=== PATIENT | female | born 1970 | race Caucasian/White ===

== ENCOUNTER 2024-11-24 09:02 | Emergency (ER) | payer OTHER, SELFPAY ==
--- NOTE | ~2024-11-24 | XR_ITS ---
CLINICAL HISTORY: anterior left lower rib pain 5 view, chest and left ribs Comparison: None Findings: No apparent rib fracture, callus or deformity. Nondisplaced rib fractures can be radiographically occult. No consolidation, pleural effusion, edema or pneumothorax. Normal heart size and mediastinal contour. Vessel en face versus granuloma right base. Upper abdomen unremarkable. Impression: No apparent rib fracture or acute cardiopulmonary process. This document has been electronically signed by: Kirby Strickland MD on 11/24/2024 10:18:04
[2024-11-24 09:14] VITALS: BP 141/79; BP 153/94; PULSE 86; PULSE 88; RESP 16; TEMP 37.4; O2SAT 94; O2SAT 96; BMI 34.2
--- NOTE | 2024-11-24 09:20 | ECG_ITS ---
Test Reason : ABD PAIN Blood Pressure : */* mmHG Vent. Rate : 75 BPM Atrial Rate : 75 BPM P-R Int : 118 ms QRS Dur : 74 ms QT Int : 362 ms P-R-T Axes : -43 51 43 degrees QTcB Int : 404 ms Normal sinus rhythm Premature ventricular complexes Abnormal ECG No previous ECGs available Referred By: Jes Campuzano Electronically Signed By: PETRA LAU
--- NOTE | 2024-11-24 09:25 | ED.CHESTPAIN ---
HPI - Chest Pain General Chief Complaint: Chest Pain Stated Complaint: RIB PAIN Time Seen by Provider: 11/24/24 09:07 Source: patient and EMS Mode of arrival: EMS Limitations: no limitations History of Present Illness ED Provider: KRISTIN HPI narrative: 54 yo female with PMH of bronchitis, no recent travel/procedures, no HRT use notes she started to feel sick on Sunday with a cough/URI symptoms. On Sunday she shoveled and snow was heavy she felt pain in L rib area - since then she has pain with deep breaths, moving, touching the left lower rib area. She took motrin which did not help. She notes she did not feel a pop or anything but felt the lower ant rib pain while shoveling. No falls or obvious trauma. MD complaint: other (rib pain) Onset (ago): day(s) (2) Timing of current episode: constant Prior episodes: No Onset: other (while shoveling) Pain location: other (left lower anterior ribs) Pain radiation: none Severity: severe Quality: aching and sharp Relieving factors: nothing Exacerbating factors: inspiration, palpation and movement Context: other (started while shoveling) Treatment prior to arrival: other (NSAID) Related Data Previous Rx's ?Medication ?Instructions ?Recorded albuterol sulfate 90 mcg/actuation 2 puff inhalation QID PRN 11/24/24 aerosol inhaler shortness of breath or wheezing #6.7 grams cyclobenzaprine 10 mg tablet 10 mg PO TID PRN muscle spasm #20 11/24/24 tabs hydrocodone 5 mg-acetaminophen 325 1 tab PO Q6H PRN pain #12 tabs 11/24/24 mg tablet ibuprofen 600 mg tablet 600 mg PO Q6H PRN pain #30 tabs 11/24/24 lidocaine 5 % topical patch 1 patch topical DAILY #30 ea 11/24/24 ondansetron 4 mg disintegrating 4 mg PO Q8H PRN nausea and 11/24/24 tablet vomiting #20 tabs prednisone 20 mg tablet 40 mg (2 x 20 mg) PO DAILY 5 days 11/24/24 #10 tabs Allergies Allergy/AdvReac Type Severity Reaction Status Date / Time No Known Allergies Allergy Verified 11/24/24 09:19 Review of Systems Review of Systems: Constitutional : No Weight loss, No Fever, No Chills ENT/Mouth : No sore throat, pos Rhinorrhea Eyes: No Eye Pain, No Swelling Cardiovascular : pos rib Pain, no SOB, no Dyspnea on Exertion, No Orthopnea, No Edema, No Palpitations Respiratory : pos Cough, No Sputum Gastrointestinal : no Nausea, No Vomiting, No Diarrhea, No abdominal Pain, No Hematochezia, No Melena Genitourinary : No Dysuria, No Urinary Frequency Musculoskeletal : No joint pain, No Myalgias, No Joint Swelling Skin : No Skin Lesions, No rash Neuro : No Weakness, No Numbness, No Dizziness, No Headache All other systems reviewed and are negative [facility] Past Medical History Attestation statement: The following information was validated with the patient. Source: old records reviewed Medical History (Updated 11/24/24 @ 11:36 by Jes Campuzano DO) Bronchitis Social History Social History (Updated 11/24/24 @ 09:29 by Jes Campuzano DO) Patient Tobacco Use Status: Current everyday Tobacco user Smoked in Last 30 Days: Yes Use of substances other than those prescribed or required for medical reasons: No Advance Directives: Yes Advance Directives Information Provided: Yes Advance Directives on File: No Do you have a plan to hurt others: No Plan Patient : No Physical Exam Vital Signs: Vital Signs: Last Vital Signs Temp 99.3 F 11/24/24 09:14 Pulse 88 11/24/24 09:14 Resp 16 11/24/24 09:14 BP 141/79 H 11/24/24 09:14 Pulse Ox 94 11/24/24 09:14 O2 Del Method Room Air 11/24/24 09:14 BMI result Body Mass Index 34.2 Appearance: Alert. Oriented X3. No acute distress. Eyes: Pupils equal, round and reactive to light. ENT: Pharynx normal. Neck: Normal inspection. Neck supple. CVS: Normal heart rate and rhythm. Pulses normal. Respiratory: No respiratory distress. Breath sounds normal. Chest: no obvious contusion/deformity but she has sig ttp along l lower anterolateral ribs that reproduces the pain Abdomen: Soft and nontender. Skin: Skin warm and dry. Normal skin color. Normal skin turgor. Extremities: No lower extremity edema. Neuro: Oriented X 3. No motor deficit. No sensory deficit. CN2-12 intact Medications Administered Discontinued Medications Generic Name Dose Route Start Last Admin Trade Name Freq PRN Reason Stop Dose Admin Hydrocodone Bitart/Acetaminophen 1 tab 11/24/24 09:19 11/24/24 10:08 Hydrocodone Bit/Acetam 5/325 Tablet PO 11/24/24 09:20 1 tab ONCE ONE Administration Diazepam 2 mg 11/24/24 09:19 11/24/24 10:08 Diazepam 2 Mg Tablet PO 11/24/24 09:20 2 mg ONCE ONE Administration Procedures Procedure Narrative Procedure Narrative: bedside ECHO no effusion on parasternal, apical, subxiphoid Medical Decision Making Medical Decision Making [facility] Narrative: 54 yo female with PMH of bronchitis here with c/o URI on Sunday but then went out to shovel and started to feel sig pain in L rib area with palpation and movement along with deep breaths. She has no known risk factors for VTE and has no hypoxia/tachycardia/signs of DVT. She could have rib fracture/strain/contusion, viral syndrome such as flu, pleurisy. Will start with work up including rib xrays for fracture/PTX, effusion then obtain EKG, troponin PO pain control ordered Differential Diagnosis Differential Diagnoses: The differential diagnosis associated with the presentation includes pleurisy, pericarditis, rib strain, rib fracture - her pain is reproduceable and much lower on her ribs seems atypical for ACS Admission/Observation Consideration of admission/observation: Escalation of care including admission/observation considered neg trop neg ddimer no rib fracture, pneumonia, PTX on exam send home with pain control and incentive spirometer not a candidate for tamiflu - 3 days out Lab Data [facility] Lab Attestation statement: I reviewed the patient's lab results. 11/24/24 10:15 11/24/24 10:15 Labs: Lab Results 11/24/24 Range/Units 10:15 WBC 6.5 (4.8-10.8) X10*3/uL RBC 4.44 (4.20-5.50) X10*6/uL Hgb 13.6 (12.0-16.0) g/dl Hct 41.6 (37.0-47.0) % MCV 93.7 (80.0-98.0) fL MCH 30.6 (27.0-33.0) pg MCHC 32.7 (31.0-35.0) g/dl RDW 13.5 (11.0-16.0) % Plt Count 248 (160-400) X10*3/uL MPV 9.7 (9.4-12.3) fL Immature Gran % (Auto) 0.5 H (0.0-0.4) % Neut % (Auto) 79.4 H (45-73) % Lymph % (Auto) 11.1 L (20-40) % [place] % (Auto) 7.9 (2-11) % Eos % (Auto) 0.9 (0-4) % Baso % (Auto) 0.2 (0-2) % Lymph # (Auto) 0.7 L (1.2-4.9) X10*3/uL [place] # (Auto) 0.5 (0.1-1.2) X10*3/uL Eos # (Auto) 0.1 (0.0-0.4) X10*3/uL Baso # (Auto) 0.0 (0.0-0.2) X10*3/uL Abs Immat Gran (auto) 0.03 (0.00-0.03) X10*3/uL Absolute Neuts (auto) 5.1 (2.0-8.3) x10*3/uL Absolute Nucleated RBC 0.000 (0.0-0.012) X10*3/uL Nucleated RBC % (auto) 0.0 (0.0-0.2) /100WBC PT 10.4 L (10.9-12.4) SEC INR 0.9 (0.9-1.1) D-Dimer High Sensitivty < 150 NG/ML Sodium 140 (135-145) mmol/L Potassium 3.4 (3.3-5.1) mmol/L Chloride 107 (96-108) mmol/L Carbon Dioxide 25 (22-29) mmol/L Anion Gap 11 L (12-20) BUN 10 (9-16) mg/dL Creatinine 0.68 (0.5-1.4) mg/dL Estim Creat Clear Calc 92.9 Estimated GFR > 60 Random Glucose 77 (60-115) mg/dL Calcium 8.9 (8.4-10.2) mg/dL Magnesium 1.9 (1.6-2.6) mg/dL Total Bilirubin 0.2 (0.0-1.0) mg/dL Direct Bilirubin < 0.2 (0.0-0.5) mg/dL AST 22 (5-31) U/L ALT 12 (0-31) U/L Alkaline Phosphatase 60 (39-117) U/L Troponin I High Sens < 2.7 (<3.5-17.0) ng/L Total Protein 6.6 (6.5-8.0) g/dL Albumin 4.0 (3.5-5.0) g/dL Lipase 30 (8-78) U/L Influenza Type A (PCR) POSITIVE A (Negative) Influenza Type B (PCR) NEGATIVE (Negative) RSV RNA Qual (PCR) NEGATIVE (Negative) SARS-CoV-2 RNA (RT-PCR) NEGATIVE (Negative) Independent Interpretation I performed an independent interpretation of an: EKG and Plain X-Ray Interpretation: Rate: 75 Rhythm: NSR [place]: normal Normal P waves. Normal ALEJO. Normal QRS complex. ST T wave : inverted t wave V1, no ASHLEY qTC: 404 prior studies: no acute ischemia The study has been interpreted contemporaneously by me. . Radiology Impression Discussion of test interpretation with radiology: I have reviewed the radiologist's reading. Independent Historian Clinical information obtained from an independent historian. History obtained from or confirmed by: EMS Prescription Management I considered prescription management with: Pain Medication Discharge Plan Discharge Clinical Impression: Influenza A Contusion of rib on left side Qualifiers: Encounter type: initial encounter Qualified Code(s): S20.212A - Contusion of left front wall of thorax, initial encounter Patient Disposition: Home, Self-Care Instructions: Influenza (ED), Rib Contusion (ED) Additional Instructions: there are no obvious broken ribs on xray, no pneumonia no collapsed lung we still treat this the same way like a broken bone. no more than 10lbs lifting for 2 weeks, incentive spirometer at least 2 times every hour while awake rest and stay hydrated okay to take motrin as well for pain. return for worsening breathing, pain, increased mucous production, fevers that start on Sunday, or any other concerns labs today show normal blood tests of heart, EKG, negative test for blood clot in lungs follow up with your doctor next week Prescriptions: New cyclobenzaprine 10 mg tablet 10 mg PO TID PRN (Reason: muscle spasm) Qty: 20 0RF hydrocodone-acetaminophen 5-325 mg tablet 1 tab PO Q6H PRN (Reason: pain) Qty: 12 0RF Rx Instructions: partial fill okay; Partial Fill upon patient request. prednisone 20 mg tablet 40 mg PO DAILY 5 Days Qty: 10 0RF lidocaine 5 % adhesive patch,medicated 1 patch topical DAILY Qty: 30 0RF Rx Instructions: leave on most painful area for up to 12 hrs ibuprofen 600 mg tablet 600 mg PO Q6H PRN (Reason: pain) Qty: 30 0RF albuterol sulfate 90 mcg/actuation HFA aerosol inhaler 2 puff inhalation QID PRN (Reason: shortness of breath or wheezing) Qty: 6.7 0RF ondansetron 4 mg tablet,disintegrating 4 mg PO Q8H PRN (Reason: nausea and vomiting) Qty: 20 0RF Stand Alone Forms: Work/School Release Print Language: Thai
[2024-11-24] MEDS: diazePAM 2 MG TABLET PO (10:08)
[2024-11-24] MEDS: HYDROcodone Bit/Acetam 5/325 TABLET 1 TAB PO (10:08)
[2024-11-24 10:18] LABS: MANUAL DIFF FLAG NO
[2024-11-24 10:20] LABS: Basophils Percent Auto 0.2 % (0-2); Eosinophils Absolute Auto 0.1 X10*3/uL (0.0-0.4); Eosinophils Percent Auto 0.9 % (0-4); Hematocrit 41.6 % (37.0-47.0); Hemoglobin 13.6 g/dl (12.0-16.0); Imm Gran Abs Auto 0.03 X10*3/uL (0.00-0.03); Imm Gran Pct Auto 0.5 % (0.0-0.4); Lymphocytes Absolute Auto 0.7 X10*3/uL (1.2-4.9); Lymphocytes Percent Auto 11.1 % (20-40); Mean Corpuscular HGB Conc 32.7 g/dl (31.0-35.0); Mean Corpuscular Hemoglobin 30.6 pg (27.0-33.0); Mean Corpuscular Volume 93.7 fL (80.0-98.0); Mean Platelet Volume 9.7 fL (9.4-12.3); Monocytes Absolute Auto 0.5 X10*3/uL (0.1-1.2); Monocytes Percent Auto 7.9 % (2-11); Neutrophils Absolute Auto 5.1 x10*3/uL (2.0-8.3); Neutrophils Percent Auto 79.4 % (45-73); Platelet Count 248 X10*3/uL (160-400); Red Blood Count 4.44 X10*6/uL (4.20-5.50); Red Cell Distribution Width 13.5 % (11.0-16.0); White Blood Count 6.5 X10*3/uL (4.8-10.8)
[2024-11-24 10:25] LABS: INTERNATIONAL NORM RATIO 0.9 (0.9-1.1); Prothrombin Time 10.4 SEC (10.9-12.4)
[2024-11-24 10:45] LABS: Troponin-I High Sensitivity < 2.7 ng/L (<3.5-17.0)
[2024-11-24 10:48] LABS: Alanine Aminotransferase 12 U/L (0-31); Alkaline Phosphatase 60 U/L (39-117); Anion Gap 11 (12-20); Aspartate Amino Transferase 22 U/L (5-31); Bilirubin Direct < 0.2 mg/dL (0.0-0.5); Bilirubin Total 0.2 mg/dL (0.0-1.0); Blood Urea Nitrogen 10 mg/dL (9-16); Calcium 8.9 mg/dL (8.4-10.2); Carbon Dioxide 25 mmol/L (22-29); Chloride 107 mmol/L (96-108); Creatinine Clr Calc Pharmacy 92.9; Estimated Glomerular Filt Rate > 60; Glucose Random 77 mg/dL (60-115); Lipase 30 U/L (8-78); Magnesium 1.9 mg/dL (1.6-2.6); Potassium 3.4 mmol/L (3.3-5.1); Sodium 140 mmol/L (135-145); Total Protein 6.6 g/dL (6.5-8.0)
[2024-11-24 11:01] LABS: Influenza A PCR POSITIVE (Negative); Influenza B PCR NEGATIVE (Negative); Resp Syncy Virus RNA Qual PCR NEGATIVE (Negative); SARS COV2 PCR INHOUSE NEGATIVE (Negative)
[2024-11-24 11:07] LABS: D Dimer High Sensitivity < 150 NG/ML
[2024-11-24 11:52] VITALS: BP 141/79; PULSE 88; RESP 16; TEMP 37.4; O2SAT 94
== END 2024-11-24 12:05 | disposition home or self-care (01) ==
PROVIDERS: Emergency Provider Emergency Medicine; PCP Pediatrics
DX: S20.212A Contusion of left front wall of thorax, initial encounter (principal); R07.89 Other chest pain; R07.81 Pleurodynia; X50.1XXA Overexertion from prolonged static or awkward postures, initial encounter; Y93.H1 Activity, digging, shoveling and raking; Y92.007 Garden or yard of unspecified non-institutional (private) residence as the place of occurrence of the external cause; Y99.8 Other external cause status; Z79.899 Other long term (current) drug therapy; Z03.818 Encounter for observation for suspected exposure to other biological agents ruled out
CPT/HCPCS: 0241U; 36415; 71101; 80048; 80076; 83690; 83735; 84484; 85025; 85379; 85610; 93005; 99283; 99284

== ENCOUNTER → 2024-11-24 09:19 | Outpatient (BNV) | payer OTHER, SELFPAY | PROVIDERS: Emergency Provider Emergency Medicine; PCP Pediatrics; Visit Provider Radiology Diagnostic Radiology | DX: R07.82 Intercostal pain (principal) | CPT/HCPCS: 71101 ==

== ENCOUNTER → 2024-11-24 09:20 | Outpatient (BNV) | payer OTHER, SELFPAY | PROVIDERS: Emergency Provider Emergency Medicine; PCP Pediatrics; Visit Provider Internal Medicine | DX: I49.3 Ventricular premature depolarization (principal) | CPT/HCPCS: 93010 ==